=== PATIENT | female | born 1960 | race Caucasian/White ===

== ENCOUNTER 2020-12-14 08:42 | Outpatient (CLI) | payer BC ==
--- NOTE | 2020-12-14 10:25 | MRI ---
MRI BRAIN WITH AND WITHOUT CONTRAST: DATE: 12/14/2020 HISTORY: 60-year-old female with ICD-10: "D 43.2 brain tumor" History of surgical resection of right-sided meningioma. Follow-up small left-sided meningioma, status post irradiation therapy. Breast cancer, currently on chemotherapy and radiation therapy.. Evaluate for brain metastasis. COMPARISON: 02/17/2016 and 05/31/2011 TECHNIQUE: Multiplanar, multisequence MRI of the brain performed pre- and post-IV injection of gadolinium based contrast agent. FINDINGS: The left lateral posterior frontal meningioma originally measured approximately 1.5 x 1.3 x 1.6 cm on 05/31/2011. It measured 1.4 x 1.1 x 1.6 cm on 02/17/2016. It currently measures 1.2 x 1 x 1.4 cm. The small amount of adjacent vasogenic edema in a left lateral posterior frontal gyrus seen on 02/17/20 16 has further decreased and is now minimal. Again noted is the moderately large right parietal region of encephalomalacia and gliosis (with small area of the adjacent occipital lobe involved), and overlying right parietal craniotomy changes. There is no evidence of tumor recurrence at this right-sided operative site. The dural venous sinuses are patent and clear. No obstructive hydrocephalus, mass effect, midline shift, or extra-axial fluid collection. No new intracranial enhancing nodules. Increased pachymeningeal enhancement due to previous craniotomy. No new hemorrhage or restricted diffusion. IMPRESSION: 1) slow shrinkage of the small left lateral supratentorial meningioma, presumably in response to radi ation therapy. 2) postsurgical changes with moderately large resection site encephalomalacia and gliosis in right pa rietal lobe. 3) no evidence of metastatic disease
== END 2020-12-14 08:43 | disposition home or self-care (01) ==
LOC: TBSIIMAG 08:42
PROVIDERS: ATTEND Neurological Surgery
DX: D49.6 Neoplasm of unspecified behavior of brain (principal); D32.0 Benign neoplasm of cerebral meninges; G93.89 Other specified disorders of brain; Z98.890 Other specified postprocedural states
CPT/HCPCS: 70553; 82565

== ENCOUNTER 2023-02-21 13:46 | Outpatient (CLI) | payer BC | END 2023-02-21 13:47 | disposition home or self-care (01) | LOC: SCSMRI 13:46 | PROVIDERS: ATTEND Radiology Radiation Oncology | DX: D32.9 Benign neoplasm of meninges, unspecified (principal) | CPT/HCPCS: 70553; 82565 ==